=== PATIENT | female | born 2000 | race Caucasian/White ===

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

== ENCOUNTER 2022-03-30 19:35 | Outpatient (REF) | payer MEDICAID, SELFPAY ==
[2022-03-31 14:22] LABS: GC Result Negative (Negative)
[2022-03-31 14:34] LABS: Chlamydia Result Positive (Negative)
== END 2022-03-30 19:36 | disposition home or self-care (01) ==
LOC: LBN 19:35
PROVIDERS: PCP Nurse Practitioner Pediatrics; Visit Provider Nurse Practitioner Women's Health
DX: Z11.3 Encounter for screening for infections with a predominantly sexual mode of transmission (principal)
CPT/HCPCS: 87491; 87591

== ENCOUNTER 2023-04-05 10:37 | Outpatient (REF) | payer MEDICAID, SELFPAY ==
[2023-04-06 13:36] LABS: Chlamydia Result Negative (Negative); GC Result Negative (Negative)
== END 2023-04-05 10:38 | disposition home or self-care (01) ==
LOC: LBN 10:37
PROVIDERS: PCP Nurse Practitioner Family; Visit Provider Nurse Practitioner Women's Health
DX: Z11.3 Encounter for screening for infections with a predominantly sexual mode of transmission (principal)
CPT/HCPCS: 87491; 87591

== ENCOUNTER 2024-05-08 11:05 | Outpatient (REF) | payer BC, SELFPAY ==
--- NOTE | 2024-05-08 10:45 | PAPFT_PTH ---
PATIENT: Sherita Snow LOC: [facility] U#:[id number] AGE/SX: 23/F ROOM: RE05/08/[address]: Khushboo Nuñez NP : 2000 BED: DIS: 05/08/2024 SPEC #: [id number] RECD: 05/08/24 13:28 STATUS: ILAN [facility]UMFIELD #: [id number] LUIS: 05/08/24 10:[address]: Khushboo Nuñez NP DEPT: [facility]ology RECD BY: Mireya Thacker ENTERED: 05/08/24 13:29 SP TYPE: PAPFT OTHR DR: Gisel Franks NP Tissues: 1 - CX/ENDOCX FOR PAP SMEARS Procedures: PAP THIN PREP/[facility] Screening Comments: [id number] (CHLAMYDIA/GC)
[2024-05-09 12:46] LABS: Chlamydia Result Negative (Negative); GC Result Negative (Negative)
== END 2024-05-08 11:06 | disposition home or self-care (01) ==
LOC: LBN 11:05
PROVIDERS: PCP Nurse Practitioner Family; Visit Provider Nurse Practitioner Women's Health
DX: Z12.4 Encounter for screening for malignant neoplasm of cervix (principal); Z11.3 Encounter for screening for infections with a predominantly sexual mode of transmission
CPT/HCPCS: 87491; 87591; 88142

== ENCOUNTER 2024-10-17 15:59 | Outpatient (REF) | payer BC, SELFPAY ==
[2024-10-21 11:41] LABS: Chlamydia Result Negative (Negative); GC Result Negative (Negative)
== END 2024-10-17 16:00 | disposition home or self-care (01) ==
LOC: LBN 15:59
PROVIDERS: PCP Nurse Practitioner Family; Visit Provider Obstetrics & Gynecology
DX: Z70.8 Other sex counseling (principal); R92.8 Other abnormal and inconclusive findings on diagnostic imaging of breast; Z30.431 Encounter for routine checking of intrauterine contraceptive device; N63.0 Unspecified lump in unspecified breast; Z11.3 Encounter for screening for infections with a predominantly sexual mode of transmission
CPT/HCPCS: 87491; 87591